=== PATIENT | female | born 1970 | race African-American/Black ===

== ENCOUNTER 2017-07-10 09:50 | Emergency (ER) | payer BC, OTHER ==
[~2017-07-10] VITALS: Ht 154.9 cm; Wt 75.0 kg
[~2017-07-10 09:50] MED LIST: Z.0.NO CURRENT MEDS
[2017-07-10 10:00] VITALS: BP 122/66; PULSE 68; RESP 16; TEMP 98.3; O2SAT 98
[2017-07-10] MEDS ORDERED: TYLE325T PO (10:12)
--- NOTE | 2017-07-10 10:30 | PD ---
HPI Chief Complaint: Back/ Neck Pain or Injury Time Seen by Provider: 10:29 Travel History International Travel<30 days: No Contact w/Intl Traveler<30days: No Traveled to known affect area: No History of Present Illness HPI 46-year-old -[place] female presents emergency department with 3 day history of neck and upper back pain and stiffness. 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 Patient states she woke up fine on Monday morning at approximately 9 AM developed pain which is progressively worsening over the past 3 days. Patient took some extra strength Tylenol Monday evening but has not taking anything since. Patient has been using heat with mild relief. She came in today as she was unable to sleep last night secondary to the pain getting worse. Patient denies falling, or other injury. Patient denies numbness or tingling or weakness in the upper extremities. Patient has no fever, chills, masses, or difficulty swallowing. Pain is 9 out of 10. Patient is allergic to propoxyphene. 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 1) ?: Not : 2 Para: 2 Past Surgical History Hysterectomy: Yes Social History Alcohol Use: No Tobacco Use: No Substance Use: No Allergies-Medications (Allergen,Severity, Reaction): Coded Allergies: propoxyphene (Unverified Allergy, Severe, 11/15/16) Reported Meds & Prescriptions Reported Meds & Active Scripts Active Tramadol (Tramadol HCl) 50 Mg Tab 50 Mg PO Q6H PRN Flexeril (Cyclobenzaprine HCl) 10 Mg Tab 10 Mg PO TID 5 Days Ibuprofen 600 Mg Tab 600 Mg PO Q6H PRN Reported Tylenol (Acetaminophen) 325 Mg Tab 325 Mg PO Q4H PRN Review of Systems Except as stated in HPI: all other systems reviewed are Neg General / Constitutional: No: Fever Eyes: No: Visual changes HENT: Positive: Headaches, Neck Stiffness, Neck Pain, No: Sore Throat, Rhinitis , Rhinorrhea, Congestion, Nosebleed, Dental Difficulties, Earache Cardiovascular: No: Chest Pain or Discomfort Respiratory: No: Shortness of Breath Gastrointestinal: No: Abdominal Pain Genitourinary: No: Dysuria Musculoskeletal: No: Pain Skin: No Rash Neurologic: No: Weakness Psychiatric: No: Depression Endocrine: No: Polydipsia Hematologic/Lymphatic: No: Easy Bruising Physical Exam Narrative GENERAL: Patient appears in moderate distress. She is guarding movement of the neck per SKIN: Warm and dry. Normal color. Normal turgor. No rash HEAD: Atraumatic. Normocephalic. EYES: Pupils equal and round. No scleral icterus. No injection or drainage. ENT: No nasal bleeding or discharge. Mucous membranes pink and moist. Pharynx is clear. Airways patent NECK: Trachea midline. Patient has no midline bony tenderness or step-off. Patient has generalized muscle pain, spasm, and stiffness bilaterally extending down into the upper trapezius bilaterally. CARDIOVASCULAR: Regular rate and rhythm. RESPIRATORY: No accessory muscle use. Clear to auscultation. Breath sounds equal bilaterally. MUSCULOSKELETAL: Extremities without clubbing, cyanosis, or edema. No obvious deformities. NEUROLOGICAL: Awake and alert. No obvious cranial nerve deficits. Motor grossly within normal limits. Five out of 5 muscle strength in the arms and legs. Normal speech. PSYCHIATRIC: Appropriate mood and affect; insight and judgment normal. Data Data Last Documented VS Vital Signs Date Time Temp Pulse Resp B/P (MAP) Pulse Ox O2 Delivery O2 Flow Rate FiO2 07/10/17 10:00 98.3 68 16 122/66 (84) 98 Orders Orders Orphenadrine Inj (Norflex Inj) (07/10/17 10:45) Ketorolac Inj (Toradol Inj) (07/10/17 10:45) MDM Medical Decision Making Medical Screen Exam Complete: Yes Emergency Medical Condition: Yes Differential Diagnosis Neck pain. Spasmodic torticollis. Muscle spasm. Narrative Course Patient is medically stable at time of exam. No signs of infectious process is noted. Patient is given Toradol 60 mg IM as well as Norflex 60 mg IM. Radiographic imaging is not felt warranted based on my history and physical. Patient will be continued on ibuprofen 600 mg 4 times daily #40. Patient continued on Flexeril 10 mg up to 3 times daily #15. Patient continued on tramadol 50 mg every 6 hours as needed pain #12. Patient is given exercises and is to use heat and ice as discussed. Work note is given. Diagnosis Primary Impression: Spasmodic torticollis Patient Instructions: General Instructions, Spasmodic Torticollis (ED) Additional Instructions: No signs of infectious process is noted. Patient is given Toradol 60 mg IM as well as Norflex 60 mg IM. Radiographic imaging is not felt warranted based on my history and physical. Patient will be continued on ibuprofen 600 mg 4 times daily #40. Patient continued on Flexeril 10 mg up to 3 times daily #15. Patient continued on tramadol 50 mg every 6 hours as needed pain #12. Patient is given exercises and is to use heat and ice as discussed. Work note is given. Med/Other Pt SpecificInfo: Prescription(s) given Scripts Tramadol (Tramadol) 50 Mg Tab 50 MG PO Q6H Y for PAIN, #12 TAB 0 Refills Prov: Lily Rodríguez MD 07/10/17 Cyclobenzaprine (Flexeril) 10 Mg Tab 10 MG PO TID for Muscle Spasm for 5 Days, #15 TAB 0 Refills Prov: Lily Rodríguez MD 07/10/17 Ibuprofen (Ibuprofen) 600 Mg Tab 600 MG PO Q6H Y for Pain/Inflammation, #40 TAB 0 Refills Prov: Lily Rodríguez MD 07/10/17 Disposition: 01 DISCHARGE HOME Condition: Stable Terrence Desai Jul 10, 2017 10:30
[2017-07-10] MEDS ORDERED: IBUP-232 PO (10:42)
[2017-07-10] MEDS ORDERED: CYCL10TA PO (10:42)
[2017-07-10] MEDS ORDERED: TRAM50TA PO ×2 (10:42→10:49)
[2017-07-10] MEDS ORDERED: KETOROLAC TROMETHAMINE 60 MG/2 ML (IM) VIAL IM ONE (10:45)
[2017-07-10] MEDS ORDERED: ORPHENADRINE INJ 60 MG/2 ML AMP IM ONE (10:45)
== END 2017-07-10 11:06 | disposition home or self-care (01) ==
LOC: NEPK 09:50
DX: G24.3 Spasmodic torticollis (principal)
CPT/HCPCS: 96372; 99283; J1885; J2360